=== PATIENT | female | born 1990 | race Two or more races ===

== ENCOUNTER 2023-11-19 20:36 | Emergency (ER) | payer OTHER ==
[~2023-11-19] VITALS: Ht 160 cm; Wt 86.2 kg
[2023-11-19] MEDS ORDERED: TETANUS IMMUNE GLOBULIN 250 U/SYR DISP.SYRIN IM STA (21:14)
[2023-11-19] MEDS ORDERED: AMOX1TAB5 PO (21:31)
[2023-11-19] MEDS ORDERED: TETANUS & DIPHTHERIA TOX,ADULT 0.5 ML VIAL IM ONE (22:15)
== END 2023-11-19 22:19 | disposition home or self-care (01) ==
LOC: ER 20:38
DX: S61.452A Open bite of left hand, initial encounter (principal); W54.0XXA Bitten by dog, initial encounter; Y93.89 Activity, other specified; Y92.832 Beach as the place of occurrence of the external cause; Y99.8 Other external cause status

== ENCOUNTER 2024-03-07 13:56 | Emergency (ER) | payer OTHER ==
[~2024-03-07] VITALS: Ht 160 cm; Wt 90.7 kg
[~2024-03-07 13:56] MED LIST: AMOX1TAB5 PO
[2024-03-07 14:13] VITALS: BP 142/85; O2SAT 100
== END 2024-03-07 14:41 | disposition home or self-care (01) ==
LOC: ER 13:58
DX: I80.3 Phlebitis and thrombophlebitis of lower extremities, unspecified (principal)

== ENCOUNTER 2025-03-20 16:30 | Emergency (ER) | payer OTHER ==
[~2025-03-20] VITALS: Ht 157.5 cm; Wt 90.7 kg
[2025-03-20 19:12] LABS: BASO % 0.8 % (0.1-1.2); EOS # 0.07 (0.04-0.54); EOS % 0.8 % (0.7-7.0); LYMPH # 2.13 (1.18-3.74); LYMPH % 23.6 % (19.3-53.1); MEAN PLATELET VOLUME 10.10 fl (9.4-12.4); MONO # 0.47 (0.24-0.82); MONO % 5.2 % (4.7-12.5); NEUT # 6.28 (1.56-6.13); NEUT % 69.4 % (34.0-71.1); RED CELL DISTRIBUTION WIDTH 12.7 % (11.6-14.4)
[2025-03-20 19:27] LABS: URINE APPEARANCE Clear; URINE BILIRRUBIN Negative (NEGATIVE); URINE BLOOD Negative; URINE COLOR Yellow; URINE GLUCOSE Negative (NEGATIVE); URINE KETONE Trace (NEGATIVE); URINE LEUKOCYTE Negative; URINE NITRATE Negative; URINE PROTEIN Negative (NEGATIVE); URINE UROBILINOGEN 1.0 E.U./dl
[2025-03-20 19:28] LABS: URINE BACTERIA 194.4 uL (0.0-1933); URINE EPITHELIAL CELLS 1.8 uL (0.0-38.8); URINE RBC 5.8 uL (0.0-20.8); URINE WBC 4.8 uL (0.0-23.2)
[2025-03-20 19:31] LABS: URINE CAST 0.14 uL (0.0-1.40)
[2025-03-20 19:43] LABS: ALT/SGPT 52.0 U/L (12-78); AST/SGOT 37.0 U/L (15-37); BILIRUBIN TOTAL 0.42 mg/dL (0.3-1.2); BUN CREA RATIO 14.0 (7.0-25.0); CREATININE SERUM 0.83 mg/dL (0.55-1.02); GFR 79.17; GLOBULINA 3.6 G/DL (2.4-3.5); GLUCOSE FASTING 95.0 mg/dL (65-100); OSMOLALITY SERUM 283.0 MOSM/KG (275-295)
[2025-03-20] MEDS ORDERED: IBUPROFEN600 MG PO (23:52)
[2025-03-20] MEDS ORDERED: BENZONATATE200 M1 PO (23:52)
== END 2025-03-21 02:12 | disposition home or self-care (01) ==
LOC: ER 16:31
PROVIDERS: Preventive Medicine Public Health & General Preventive Medicine
DX: R07.81 Pleurodynia (principal); R05.3 Chronic cough; R05.8 Other specified cough; R07.89 Other chest pain